=== PATIENT | male | born 1965 | race Caucasian/White ===

== ENCOUNTER 2017-05-06 18:02 | Emergency (ER) | payer OTHER ==
[~2017-05-06] VITALS: Ht 170.2 cm; Wt 74.8 kg
[~2017-05-06 18:02] MED LIST: ALBU90I INH; ATOR40TA PO; AZIT250 PO; Augmentin 875-1 EACH PO; BUSP10 PO; Bactrim Ds Tab1 EACH PO; CEPH500 PO; CODGUAEL PO; Flonase 0.05% N16 GM; GUAI600T33 PO; HYDACE7.5L PO; HYDR1TAB94 PO; IBUP800 PO; INCARCERATION; METPRE4DP PO; OMEPRAZOLE MAGN20 MG PO; PANT40 PO; PROM25 PO; Prozac20 MG PO; RANI150 PO; Sudogest30 MG PO
[2017-05-06 18:50] LABS: BASOPHILS ABSOLUTE AUTO 0.03 K/mm3 (0.00-0.23); BASOPHILS PERCENT AUTO 0 % (0-2); EOSINOPHILS ABSOLUTE AUTO 0.01 K/mm3 (0.00-0.68); EOSINOPHILS PERCENT AUTO 0 % (0-6); Hematocrit 43.8 % (37.0-53.0); IMMATURE GRAN ABSOLUTE AUTO 0.03 K/mm3 (0.00-0.10); IMMATURE GRAN PERCENT AUTO 0 % (0-1); LYMPHOCYTES ABSOLUTE AUTO 0.84 K/mm3 (0.84-5.20); LYMPHOCYTES PERCENT AUTO 8 % (21-46); MONOCYTES ABSOLUTE AUTO 0.88 K/mm3 (0.16-1.47); MONOCYTES PERCENT AUTO 9 % (4-13); Mean Corpuscular HGB 30.2 pg (26.0-34.0); Mean Corpuscular HGB Conc 34.2 g/dL (31.5-36.5); Mean Corpuscular Volume 88 fL (80-100); Mean Platelet Volume 10.2 fL (9.1-12.4); NEUTROPHILS ABSOLUTE AUTO 8.35 K/mm3 (1.96-9.15); NEUTROPHILS PERCENT AUTO 82 % (41-73); Platelet Count 311 K/mm3 (150-400); RDW Coefficient Variation 12.6 % (11.7-14.2); RDW Standard Deviation 40.8 fL (35.1-46.3); Red Blood Cell Count 4.97 M/mm3 (4.30-5.90); White Blood Cell Count 10.14 K/mm3 (4.00-11.30)
[2017-05-06 19:04] LABS: Alanine Aminotransfer (ALT/SGP 35 U/L (12-78); Albumin/Globulin Ratio 1.5 (0.8-1.8); Alk Phos 83 U/L (50-136); Anion Gap 14 mmol/L (6-16); Aspartate Aminotrans (AST/SGOT 42 U/L (12-37); Bilirubin, Total 1.1 mg/dL (0.1-1.0); Blood Urea Nitrogen 37 mg/dL (8-24); Bun/Creatinine Ratio 19.7 (12.0-20.0); CO2, Blood 19 mmol/L (21-32); Calcium, Blood 9.6 mg/dL (8.5-10.1); Chloride, Blood 101 mmol/L (98-108); Creatinine, Blood 1.88 mg/dL (0.60-1.20); Globulin, Blood 3.4 g/dL (2.2-4.0); Glomerular Filtration Rate 40 (60-); Glucose, Blood 95 mg/dL (70-99); Potassium, Blood 4.9 mmol/L (3.5-5.5); Sodium, Blood 134 mmol/L (136-145); Total Protein, Blood 8.4 g/dL (6.4-8.2); Troponin I <0.015 ng/mL (0.000-0.040)
[2017-05-06] MEDS ORDERED: Robaxin-750750 MG PO (20:03)
== END 2017-05-06 20:42 | disposition home or self-care (01) ==
LOC: ER 18:02
PROVIDERS: Emergency Medicine
DX: S16.1XXA Strain of muscle, fascia and tendon at neck level, initial encounter (principal); S29.012A Strain of muscle and tendon of back wall of thorax, initial encounter; M62.830 Muscle spasm of back; Z88.5 Allergy status to narcotic agent; Z79.899 Other long term (current) drug therapy; X58.XXXA Exposure to other specified factors, initial encounter
CPT/HCPCS: 36415; 71046; 80053; 83880; 84484; 85025; 93005; 93010; 99283

== ENCOUNTER 2017-07-20 14:33 | Emergency (ER) | payer OTHER ==
[~2017-07-20] VITALS: Ht 172.7 cm; Wt 77.1 kg
[~2017-07-20 14:33] MED LIST changes: +Robaxin-750750 MG PO
[2017-07-20 15:55] LABS: BASOPHILS ABSOLUTE AUTO 0.07 K/mm3 (0.00-0.23); BASOPHILS PERCENT AUTO 1 % (0-2); EOSINOPHILS ABSOLUTE AUTO 0.36 K/mm3 (0.00-0.68); EOSINOPHILS PERCENT AUTO 5 % (0-6); Hemoglobin 12.2 g/dL (13.5-17.5); IMMATURE GRAN ABSOLUTE AUTO 0.01 K/mm3 (0.00-0.10); IMMATURE GRAN PERCENT AUTO 0 % (0-1); LYMPHOCYTES ABSOLUTE AUTO 1.47 K/mm3 (0.84-5.20); LYMPHOCYTES PERCENT AUTO 22 % (21-46); MONOCYTES ABSOLUTE AUTO 0.64 K/mm3 (0.16-1.47); MONOCYTES PERCENT AUTO 10 % (4-13); Mean Corpuscular HGB 30.1 pg (26.0-34.0); Mean Corpuscular Volume 91 fL (80-100); Mean Platelet Volume 9.7 fL (9.1-12.4); NEUTROPHILS ABSOLUTE AUTO 4.12 K/mm3 (1.96-9.15); NEUTROPHILS PERCENT AUTO 62 % (41-73); Platelet Count 406 K/mm3 (150-400); RDW Coefficient Variation 11.9 % (11.7-14.2); RDW Standard Deviation 40.4 fL (35.1-46.3); Red Blood Cell Count 4.05 M/mm3 (4.30-5.90); White Blood Cell Count 6.67 K/mm3 (4.00-11.30)
[2017-07-20 16:08] LABS: Alanine Aminotransfer (ALT/SGP 23 U/L (12-78); Albumin, Blood 3.2 g/dL (3.4-5.0); Albumin/Globulin Ratio 0.9 (0.8-1.8); Alk Phos 79 U/L (50-136); Anion Gap 5 mmol/L (6-16); Aspartate Aminotrans (AST/SGOT 21 U/L (12-37); Bilirubin, Total 0.3 mg/dL (0.1-1.0); Blood Urea Nitrogen 23 mg/dL (8-24); Bun/Creatinine Ratio 24.1 (12.0-20.0); CO2, Blood 25 mmol/L (21-32); Calcium, Blood 8.6 mg/dL (8.5-10.1); Chloride, Blood 110 mmol/L (98-108); Creatinine, Blood 0.95 mg/dL (0.60-1.20); Globulin, Blood 3.7 g/dL (2.2-4.0); Glomerular Filtration Rate >60 (60-); Glucose, Blood 87 mg/dL (70-99); Potassium, Blood 4.3 mmol/L (3.5-5.5); Sodium, Blood 140 mmol/L (136-145); Total Protein, Blood 6.9 g/dL (6.4-8.2)
[2017-07-20] MEDS ORDERED: FLUO10 PO (16:22)
[2017-07-20] MEDS ORDERED: NAPR500 PO (16:23)
[2017-07-20] MEDS ORDERED: Amox Tr-K Clv1 EAC2 PO (16:23)
[2017-07-20] MEDS ORDERED: Norco 5-325 Ta1 EACH PO (18:57)
[2017-07-20] MEDS ORDERED: LEVFLO500 PO (18:57)
== END 2017-07-20 19:21 | disposition home or self-care (01) ==
LOC: ER 14:33
PROVIDERS: Nurse Practitioner Family
DX: J18.9 Pneumonia, unspecified organism (principal); K21.9 Gastro-esophageal reflux disease without esophagitis; F32.9 Major depressive disorder, single episode, unspecified; F41.9 Anxiety disorder, unspecified; F17.210 Nicotine dependence, cigarettes, uncomplicated; Z79.899 Other long term (current) drug therapy; Z79.1 Long term (current) use of non-steroidal anti-inflammatories (NSAID)
CPT/HCPCS: 36415; 71046; 76705; 80053; 83690; 83880; 84484; 85025; 93005; 93010; 96374; 99284; J3010

== ENCOUNTER 2017-12-28 21:22 | Emergency (ER) | payer OTHER ==
[~2017-12-28] VITALS: Ht 172.7 cm; Wt 77.1 kg
[~2017-12-28 21:22] MED LIST changes: +Amox Tr-K Clv1 EAC2 PO; +FLUO10 PO; +LEVFLO500 PO; +NAPR500 PO; +Norco 5-325 Ta1 EACH PO
[2017-12-28] MEDS ORDERED: HYDR1TAB94 PO (22:06)
== END 2017-12-28 22:13 | disposition home or self-care (01) ==
LOC: ER 21:22
DX: R07.81 Pleurodynia (principal); Z79.899 Other long term (current) drug therapy; F17.210 Nicotine dependence, cigarettes, uncomplicated
CPT/HCPCS: 71101; 99283-25

== ENCOUNTER 2019-01-14 19:05 | Emergency (ER) | payer OTHER ==
[~2019-01-14] VITALS: Ht 172.7 cm; Wt 75.3 kg
[2019-01-15] MEDS ORDERED: ATORVASTATIN CA40 MG PO (10:23)
[2019-01-15] MEDS ORDERED: Mobic15 MG PO (10:23)
[2019-01-15] MEDS ORDERED: OMEPRAZOLE MAGN20 M1 PO (10:23)
[2019-01-15] MEDS ORDERED: PROZAC20 MG PO (10:23)
[2019-01-15] MEDS ORDERED: Buspirone HCl30 MG PO (10:23)
[2019-01-15] MEDS ORDERED: Colace100 MG PO (11:20)
[2019-01-15] MEDS ORDERED: Miralax17 GM PO (11:20)
== END 2019-01-14 23:35 | disposition left against medical advice (07) ==
LOC: ER 19:05
DX: R10.9 Unspecified abdominal pain (principal); Z79.899 Other long term (current) drug therapy
CPT/HCPCS: 99283

== ENCOUNTER 2019-03-01 16:31 | Emergency (ER) | payer OTHER ==
[~2019-03-01] VITALS: Ht 172.7 cm; Wt 77.1 kg
[~2019-03-01 16:31] MED LIST changes: +ATORVASTATIN CA40 MG PO; +Buspirone HCl30 MG PO; +Colace100 MG PO; +Miralax17 GM PO; +Mobic15 MG PO; +OMEPRAZOLE MAGN20 M1 PO; +PROZAC20 MG PO
[2019-04-14] MEDS ORDERED: OMEPRAZOLE20 MG PO (08:48)
[2019-04-14] MEDS ORDERED: LOSA25 PO (08:49)
== END 2019-03-01 17:29 | disposition home or self-care (01) ==
LOC: ER 16:31
DX: S16.1XXA Strain of muscle, fascia and tendon at neck level, initial encounter (principal); S29.012A Strain of muscle and tendon of back wall of thorax, initial encounter; W10.9XXA Fall (on) (from) unspecified stairs and steps, initial encounter; E78.5 Hyperlipidemia, unspecified; K21.9 Gastro-esophageal reflux disease without esophagitis; F32.9 Major depressive disorder, single episode, unspecified; F41.9 Anxiety disorder, unspecified; F17.210 Nicotine dependence, cigarettes, uncomplicated; Z79.899 Other long term (current) drug therapy
CPT/HCPCS: 72040; 72070; 99283-25

== ENCOUNTER 2019-04-18 18:11 | Emergency (ER) | payer OTHER ==
[~2019-04-18] VITALS: Ht 172.7 cm; Wt 80.3 kg
[~2019-04-18 18:11] MED LIST changes: +LOSA25 PO; +OMEPRAZOLE20 MG PO
== END 2019-04-18 22:40 | disposition home or self-care (01) ==
LOC: ER 18:11
DX: S76.012A Strain of muscle, fascia and tendon of left hip, initial encounter (principal); S86.912A Strain of unspecified muscle(s) and tendon(s) at lower leg level, left leg, initial encounter; M54.5 Low back pain; G89.29 Other chronic pain; W01.198A Fall on same level from slipping, tripping and stumbling with subsequent striking against other object, initial encounter; F17.210 Nicotine dependence, cigarettes, uncomplicated
CPT/HCPCS: 73502; 73562-LT; 99283-25; A9270